=== PATIENT | male | born 1965 | race Native Hawaiian/Other Pacific Islander ===

== ENCOUNTER 2018-09-23 07:34 | Outpatient (CLI) | payer BC ==
[~2018-09-23 07:34] MED LIST: ASA LO-DOSE81 MG PO; BENA10TA3 PO
== END 2018-09-23 19:42 | disposition home or self-care (01) ==
LOC: NM 07:34
DX: K31.84 Gastroparesis (principal)
CPT/HCPCS: A9541

== ENCOUNTER 2019-05-25 16:45 | Inpatient (IN) | payer BC ==
[~2019-05-25] VITALS: Ht 177.8 cm; Wt 133.0 kg
[2019-05-25 19:56] VITALS: BP 144/59; TEMP 98.7; Ht 177.8 cm; Wt 133.0 kg
[2019-05-25 20:00] VITALS: BP 123/68; TEMP 98.6
[2019-05-26] VITALS (7 sets, daily range): BP systolic 103–123; BP diastolic 39–76; TEMP 97.5–99.4
[2019-05-26 05:43] LABS: PLATELET COUNT 162 K/uL (142-355)
[2019-05-26 06:15] LABS: POTASSIUM 4.8 mmol/L (3.6-5.2)
[2019-05-27 04:00] VITALS: BP 115/71; TEMP 98.5
[2019-05-27 08:00] VITALS: BP 138/65; TEMP 99
[2019-05-27] MEDS ORDERED: LISINOP/HCTZ1 TA2 PO (10:15)
[2019-05-27] MEDS ORDERED: LEVO-T175 MCG PO (10:16)
[2019-05-27 11:28] LABS: PLATELET COUNT 191 K/uL (142-355)
[2019-05-27 12:00] VITALS: BP 137/78; TEMP 98
[2019-05-27 16:00] VITALS: BP 115/67; TEMP 98.3
[2019-05-27 20:00] VITALS: BP 112/59; TEMP 98.5
[2019-05-27 23:47] VITALS: BP 138/74; TEMP 97.8
[2019-05-28 03:52] VITALS: BP 123/65; TEMP 98.7
[2019-05-28] MEDS ORDERED: ALLERGY10 M1 PO (07:36)
[2019-05-28] MEDS ORDERED: CVS OMEPRAZOLE20 MG PO (07:37)
[2019-05-28] MEDS ORDERED: FENOFIBRATE160 MG PO (07:38)
[2019-05-28] MEDS ORDERED: SERTRALINE HYDR50 MG PO (07:38)
[2019-05-28] MEDS ORDERED: XANAX2 MG PO (07:39)
[2019-05-28] MEDS ORDERED: PROCTOZONE-HC2.5 % EX (07:41)
[2019-05-28 08:00] VITALS: BP 128/72; TEMP 97.8
[2019-05-28 12:00] VITALS: BP 109/54; TEMP 98.2
[2019-05-28 16:00] VITALS: BP 111/62; TEMP 97.6
[2019-05-28 20:00] VITALS: BP 126/53; TEMP 97.7
[2019-05-29] VITALS (7 sets, daily range): BP systolic 120–169; BP diastolic 62–95; TEMP 97.6–98.8
[2019-05-29 07:09] LABS: PLATELET COUNT 183 K/uL (142-355)
[2019-05-29 07:12] LABS: POTASSIUM 3.8 mmol/L (3.6-5.2)
[2019-05-30 03:51] VITALS: BP 126/69; TEMP 97.6
[2019-05-30 08:00] VITALS: BP 155/86; TEMP 98.1
[2019-05-30 12:00] VITALS: BP 141/75; TEMP 98.1
[2019-05-30 12:52] LABS: PLATELET COUNT 177 K/uL (142-355)
[2019-05-30 13:03] LABS: POTASSIUM 3.1 mmol/L (3.6-5.2)
[2019-05-30 16:00] VITALS: BP 156/85; TEMP 97.7
[2019-05-30 20:00] VITALS: BP 142/73; TEMP 97.7
[2019-05-30 23:49] VITALS: BP 144/82; TEMP 97.4
[2019-05-31 04:00] VITALS: BP 143/76; TEMP 98.1
[2019-05-31 08:00] VITALS: BP 176/80; TEMP 98.1
[2019-05-31 08:23] LABS: POTASSIUM 3.2 mmol/L (3.6-5.2)
[2019-05-31 08:47] LABS: PLATELET COUNT 181 K/uL (142-355)
[2019-05-31 12:00] VITALS: BP 114/84; TEMP 98.1
[2019-05-31 16:00] VITALS: BP 143/76; TEMP 97.9
[2019-05-31 19:32] VITALS: BP 161/81; TEMP 98.3
[2019-05-31 23:42] VITALS: BP 158/66; TEMP 97.9
[2019-06-01 04:00] VITALS: BP 137/74; TEMP 98.1
[2019-06-01 05:41] LABS: PLATELET COUNT 186 K/uL (142-355)
[2019-06-01 05:45] LABS: POTASSIUM 3.3 mmol/L (3.6-5.2)
[2019-06-01 08:16] VITALS: BP 140/83; TEMP 98.6
[2019-06-01 12:00] VITALS: BP 140/72; TEMP 97.7
[2019-06-01 16:00] VITALS: BP 155/53; TEMP 97.4
[2019-06-01 20:00] VITALS: BP 142/72; TEMP 98.5
[2019-06-02] VITALS: BP 138/68; TEMP 98.7
[2019-06-02 04:00] VITALS: BP 139/69; TEMP 98.3
[2019-06-02 07:39] LABS: POTASSIUM 3.5 mmol/L (3.6-5.2)
[2019-06-02 08:00] VITALS: BP 122/60; TEMP 97.9
[2019-06-02 08:40] LABS: PLATELET COUNT 204 K/uL (142-355)
== END 2019-06-02 13:05 | disposition home or self-care (01) | DRG 329 ==
LOC: MED/SURG 16:45
PROVIDERS: ADMIT Student in an Organized Health Care Education/Training Program
PROC: 0DTG0ZZ Resection of Left Large Intestine, Open Approach (ICD-10-PCS; principal; 2019-05-25)
DX: K59.9 Functional intestinal disorder, unspecified (principal); J18.8 Other pneumonia, unspecified organism; K59.01 Slow transit constipation; K63.9 Disease of intestine, unspecified; E87.6 Hypokalemia; I10 Essential (primary) hypertension; E03.8 Other specified hypothyroidism; F41.8 Other specified anxiety disorders
CPT/HCPCS: 36415; 80048; 80053; 85007; 85027; 87070; 87077; 87205; 93005; 94760; J0132; J0690; J0744; J1100; J1170; J1644; J1885; J1956; J2001; J2060; J2185; J2250; J2270; J2405; J2704; J2710; J2765; J3010; J3370; J3490

== ENCOUNTER 2020-04-20 08:21 | Outpatient (CLI) | payer BC, OTHER ==
[~2020-04-20 08:21] MED LIST changes: +ALLERGY10 M1 PO; +CVS OMEPRAZOLE20 MG PO; +FENOFIBRATE160 MG PO; +LEVO-T175 MCG PO; +LISINOP/HCTZ1 TA2 PO; +PROCTOZONE-HC2.5 % EX; +SERTRALINE HYDR50 MG PO; +XANAX2 MG PO
== END 2020-04-20 19:20 | disposition home or self-care (01) ==
LOC: INF 08:21
PROVIDERS: ATTEND Internal Medicine
DX: Z23 Encounter for immunization (principal)
CPT/HCPCS: 96372

== ENCOUNTER 2020-05-18 07:39 | Outpatient (CLI) | payer BC, OTHER | END 2020-05-18 20:49 | disposition home or self-care (01) | LOC: INF 07:39 | PROVIDERS: ATTEND Internal Medicine | DX: Z23 Encounter for immunization (principal) | CPT/HCPCS: 96372 ==

== ENCOUNTER 2020-07-11 17:53 | Emergency (ER) | payer BC ==
[~2020-07-11] VITALS: Ht 175.3 cm; Wt 141.1 kg
[2020-07-11 18:32] VITALS: BP 181/104; TEMP 98.9
[2020-07-11 21:18] LABS: PLATELET COUNT 206 K/uL (142-355)
[2020-07-11 21:20] LABS: POTASSIUM 4.1 mmol/L (3.6-5.2)
== END 2020-07-12 01:50 | disposition home or self-care (01) ==
LOC: ED 17:53
PROVIDERS: Emergency Medicine Emergency Medical Services
DX: R10.84 Generalized abdominal pain (principal); Z03.818 Encounter for observation for suspected exposure to other biological agents ruled out
CPT/HCPCS: 36415; 80053; 81000; 82150; 83605; 83690; 85027; 87635; 96360; 96375; 96376; 99284; J1170; J2405; U0003

== ENCOUNTER 2021-08-26 02:01 | Emergency (ER) | payer BC ==
[~2021-08-26] VITALS: Ht 175.3 cm; Wt 141.1 kg
[2021-08-26 03:01] LABS: PLATELET COUNT 206 K/uL (142-355)
[2021-08-26 03:12] LABS: POTASSIUM 4.1 mmol/L (3.6-5.2)
[2021-08-26 03:22] LABS: PARTIAL THROMBOPLASTIN TIME 25.2 SECONDS (24.5-33.6)
[2021-08-26 05:05] VITALS: BP 106/51; TEMP 98.6
== END 2021-08-26 05:05 | disposition home or self-care (01) ==
LOC: ED 02:01
PROVIDERS: Hospitalist
DX: K52.89 Other specified noninfective gastroenteritis and colitis (principal); R19.7 Diarrhea, unspecified; R11.2 Nausea with vomiting, unspecified; E86.0 Dehydration; K43.9 Ventral hernia without obstruction or gangrene
CPT/HCPCS: 36415; 80053; 83605; 83690; 84484; 85027; 85610; 85730; 93005; 96360; 96365; 96375; 99284; J1885; J2270; J2405; J3490